=== PATIENT | female | born 1995 | race Hispanic/Latino ===

== ENCOUNTER 2023-02-22 14:46 | Outpatient (CLI) | payer OTHER | END 2023-02-22 14:47 | disposition home or self-care (01) | LOC: CSHULT 14:46 | PROVIDERS: ATTEND Nurse Practitioner Women's Health | DX: Z34.02 Encounter for supervision of normal first pregnancy, second trimester (principal); Z3A.19 19 weeks gestation of pregnancy | CPT/HCPCS: 76805 ==

== ENCOUNTER 2023-06-30 21:36 | Day surgery (SDC) | payer OTHER ==
[2023-06-30 21:52] VITALS: BMI 25.5
[2023-06-30] MEDS ORDERED: hydrALAZINE 20 MG/ML VIAL SLOW IVP PRN (22:08)
== END 2023-07-01 00:13 | disposition home or self-care (01) ==
LOC: CSHLD/OP 21:36
PROVIDERS: ATTEND Family Medicine
DX: O47.1 False labor at or after 37 completed weeks of gestation (principal); O36.8190 Decreased fetal movements, unspecified trimester, not applicable or unspecified; O99.891 Other specified diseases and conditions complicating pregnancy; R10.9 Unspecified abdominal pain; O00.01 Abdominal pregnancy with intrauterine pregnancy; Z79.82 Long term (current) use of aspirin; Z79.899 Other long term (current) drug therapy; Z3A.37 37 weeks gestation of pregnancy
CPT/HCPCS: 76819

== ENCOUNTER 2023-07-07 16:19 | Day surgery (SDC) | payer OTHER | END 2023-07-07 17:35 | disposition home or self-care (01) | LOC: CSHLD/OP 16:19 | PROVIDERS: ATTEND Family Medicine | DX: O47.1 False labor at or after 37 completed weeks of gestation (principal); Z79.899 Other long term (current) drug therapy; Z3A.38 38 weeks gestation of pregnancy | CPT/HCPCS: 99283 ==

== ENCOUNTER 2023-07-08 02:30 | Inpatient (IN) | payer MEDICAID, OTHER ==
[2023-07-08 02:33] VITALS: BMI 27.4
[2023-07-08] MEDS ORDERED: Ondansetron PF 4 MG/2 ML Vial IVP PRN ×3 (02:35→11:00)
[2023-07-08] MEDS ORDERED: hydrALAZINE 20 MG/ML VIAL SLOW IVP PRN ×2 (02:35→11:00)
[2023-07-08] MEDS ORDERED: Ibuprofen 800 MG TAB PO PRN (02:35)
[2023-07-08] MEDS ORDERED: Methylergonovine 0.2 MG/ML VIAL IM PRN (02:35)
[2023-07-08] MEDS ORDERED: fentaNYL 50 mcg/mL 1 mL Vial SLOW IVP PRN (02:35)
[2023-07-08] MEDS: Lactated Ringer's 1,000 ML IV SCH (02:35)
[2023-07-08] MEDS ORDERED: Misoprostol 200 MCG TAB PR PRN (02:35)
[2023-07-08] MEDS ORDERED: Oxytocin 30 units/NS 500 ML 500 ML IV SCH (02:35)
[2023-07-08] MEDS ORDERED: Diphenoxylate HCl/Atropine Tablet PO PRN (02:35)
[2023-07-08] MEDS ORDERED: Acetaminophen 500 MG TAB PO PRN (02:35)
[2023-07-08] MEDS ORDERED: Promethazine HCl 25 MG/ML VIAL IM PRN ×3 (02:35→11:00)
[2023-07-08] MEDS ORDERED: Carboprost 250 MCG/ML AMP IM PRN (02:35)
[2023-07-08] MEDS ORDERED: HYDROcodone/Acetaminophen 5/325 mg Tablet PO PRN (02:35)
[2023-07-08] MEDS ORDERED: Lidocaine 1% (PF) 30 ML VIAL SC PRN (02:35)
[2023-07-08] MEDS ORDERED: Tranexamic Acid 1,000 MG/10 ML VIAL IVP PRN (02:35)
[2023-07-08 03:17] LABS: Hematocrit 36.8 % (34.9-44.5); Hemoglobin 13.2 g/dL (12.0-15.5); Mean Corpuscular HGB CONC 35.9 g/dL (32.0-36.0); Mean Corpuscular Hemoglobin 32.9 pg (27.0-33.0); Mean Corpuscular Volume 91.8 fl (81.6-98.3); Mean Platelet Volume 11.3 fl (7.4-10.4); Platelet Count 296 10x3/uL (150-450); RBC Distribution Width 12.7 % (11.5-14.5); Red Blood Cell (RBC) Count 4.01 10x6/uL (3.90-5.03); White Blood Cell (WBC) Count 15.2 10x3/uL (3.5-10.5)
[2023-07-08] MEDS: fentaNYL/Ropivacaine Epidural 100 ML ONE (03:58)
[2023-07-08] MEDS ORDERED: ePHEDrine Sulfate 50 MG/10 ML VIAL SLOW IVP PRN (04:02)
[2023-07-08] MEDS ORDERED: Acetaminophen 325 MG TAB PO PRN (04:02)
[2023-07-08] MEDS ORDERED: Lactated Ringer's 500 ML IV PRN (04:02)
[2023-07-08] MEDS ORDERED: Naloxone HCl 0.4 mg/ml Vial IVP PRN ×2 (04:02)
[2023-07-08] MEDS ORDERED: Moisturizing Cream (Eucerin) 113 GM JAR TOP PRN (04:02)
[2023-07-08] MEDS ORDERED: diphenhydrAMINE 50 MG/ML VIAL IVP PRN (04:02)
[2023-07-08 04:03] LABS: HBSAg Index 0.21 S/CO (0-0.99); Hep B Surf Ag - L&D Non-Reactive S/CO (NonReactive)
[2023-07-08 04:05] LABS: Syphilis Antibody Nonreactive (Nonreactive); Syphilis Antibody Index 0.06 S/CO (<1.00 Non-Reactive)
[2023-07-08] MEDS ORDERED: Communication Order-Pharmacy FS SCH (04:15)
[2023-07-08] MEDS ORDERED: fentaNYL 2 mcg/Ropivacaine 0.2% Epidural 100 ML CADD EPIDURAL SCH (04:15)
[2023-07-08] MEDS: Oxytocin 30 units/NS 500 ML 500 ML IV SCH ×2 (06:10→09:21)
[2023-07-08] MEDS ORDERED: Lanolin Ointment 7 GM TUBE TOP PRN (11:00)
[2023-07-08] MEDS ORDERED: diphenhydrAMINE 25 MG CAP PO PRN (11:00)
[2023-07-08] MEDS ORDERED: Milk Of Magnesia 30 ML UDCUP PO PRN (11:00)
[2023-07-08] MEDS ORDERED: Bisacodyl 10 MG SUPP PR PRN (11:00)
[2023-07-08] MEDS ORDERED: ePHEDrine Sulfate 50 MG/10 ML VIAL ONE (13:00)
[2023-07-08] MEDS: Ibuprofen 800 MG TAB PO SCH (13:14)
[2023-07-08] MEDS: Benzocaine-Menthol 82.5 ML CAN TOP PRN (13:16)
[2023-07-08] MEDS: Ferrous Sulfate 325 MG TAB PO SCH (18:36)
[2023-07-08] MEDS: CEFAZOLIN 2 GM VIAL ONE (19:16)
[2023-07-08] MEDS: Azithromycin 500 MG VIAL ONE (19:16)
[2023-07-08] MEDS: Docusate 100 MG CAP PO SCH (21:29)
[2023-07-09 07:26] VITALS: BP 97/52; TEMP 98.3
[2023-07-09] MEDS: Boostrix 0.5 ML (Tdap) VIAL (>/=7 yrs of age) IM ONE (07:29)
[2023-07-09] MEDS: HYDROcodone/Acetaminophen 5/325 mg Tablet PO PRN (07:47)
[2023-07-09] MEDS: Prenatal Vitamin 1 TAB PO SCH (08:57)
== END 2023-07-09 18:45 | disposition home or self-care (01) | DRG 806 ==
LOC: CSHLD 02:30 → CSHPP 11:22
PROVIDERS: ADMIT Family Medicine; ATTEND Family Medicine
PROC: 10E0XZZ Delivery of Products of Conception, External Approach (ICD-10-PCS; principal; 2023-07-08)
PROC: 0UQGXZZ Repair Vagina, External Approach (ICD-10-PCS; 2023-07-08)
PROC: 0UQMXZZ Repair Vulva, External Approach (ICD-10-PCS; 2023-07-08)
PROC: 3E033XZ Introduction of Vasopressor into Peripheral Vein, Percutaneous Approach (ICD-10-PCS; 2023-07-08)
DX: O76 Abnormality in fetal heart rate and rhythm complicating labor and delivery (principal); O71.4 Obstetric high vaginal laceration alone; Z37.0 Single live birth; O71.82 Other specified trauma to perineum and vulva; Z3A.39 39 weeks gestation of pregnancy
CPT/HCPCS: 36415; 51702; 85027; 86780; 86850; 86900; 86901; 87340; 99285; J2590; J7120